=== PATIENT | male | born 1945 | race Caucasian/White ===

== ENCOUNTER 2017-07-25 16:52 | Emergency (ER) | payer OTHER, MEDICARE ==
[~2017-07-25] VITALS: Ht 190.5 cm; Wt 55.9 kg
[~2017-07-25 16:52] MED LIST: NICO-687 TD; NO HOME MEDS
[2017-07-25] MEDS ORDERED: ondansetron/PF 4mg/2ml inj IV ONE (17:15)
[2017-07-25] MEDS ORDERED: normal saline 1000ml 1,000 ML IV ONE (17:15)
[2017-07-25 17:36] LABS: BASOPHILS % (AUTO) 0.2 % (0-1); EOSINOPHILS # (AUTO) 0.1 X10'3 (0-0.9); EOSINOPHILS % (AUTO) 1.1 % (0-6); HEMATOCRIT 37.4 % (42.0-52.0); HEMOGLOBIN 12.4 g/dl (14.0-17.9); LYMPHOCYTES # (AUTO) 0.6 X10'3 (1.1-4.8); LYMPHOCYTES % (AUTO) 4.4 % (21-51); MEAN CORPUSCULAR HEMOGLOBIN 31.4 PG (27.0-31.0); MEAN CORPUSCULAR HGB CONC 33.2 % (33.0-36.5); MEAN CORPUSCULAR VOLUME 94.5 FL (78-98); MEAN PLATELET VOLUME 6.3 FL (7.4-10.4); MONOCYTES % (AUTO) 7.6 % (2-12); NEUTROPHILS # (AUTO) 11.3 X10'3 (1.8-7.7); NEUTROPHILS % (AUTO) 86.7 % (42-75); PLATELET COUNT 596 X10'3 (140-440); RED BLOOD COUNT 3.96 X10'6 (4.70-6.10); RED CELL DISTRIBUTION WIDTH 16.7 % (11.5-14.5)
[2017-07-25 17:50] LABS: ALANINE AMINOTRANSFERASE 13 U/L (12-78); ALBUMIN 3.4 G/DL (3.4-5.0); ALBUMIN/GLOBULIN RATIO 0.7 (1.1-1.5); ALKALINE PHOSPHATASE 107 IU/L (46-116); ANION GAP 15 (8-16); ASPARTATE AMINO TRANSFERASE 18 U/L (10-37); BILIRUBIN,TOTAL 0.8 MG/DL (0.1-1.0); BLOOD UREA NITROGEN 31 MG/DL (7-18); BUN/CREATININE RATIO 16.9 (5.4-32.0); CALCIUM 10.8 MG/DL (8.5-10.1); CHLORIDE 101 MMOL/L (99-107); CREATININE 1.83 MG/DL (0.60-1.10); GLUCOSE 144 MG/DL (70-104); POTASSIUM 4.3 MMOL/L (3.5-5.1); SODIUM 137 MMOL/L (135-145); TOTAL CARBON DIOXIDE 20.6 MMOL/L (24-32); TOTAL PROTEIN 8.1 G/DL (6.4-8.2); eGFR 37 ML/MIN
[2017-07-25] MEDS ORDERED: ONDA8TAB9 PO (20:05)
[2017-07-25] MEDS ORDERED: POLY119P2 PO (20:05)
[2017-07-25] MEDS ORDERED: HYDR-3965 PO (20:05)
[2017-07-25] MEDS ORDERED: HYDROcodone/acetaminophen 5mg/325mg tablet PO ONE (20:10)
[2017-07-25 21:56] VITALS: BP 124/63
== END 2017-07-25 21:58 | disposition home or self-care (01) ==
LOC: ER 16:52
DX: M54.9 Dorsalgia, unspecified (principal); C67.9 Malignant neoplasm of bladder, unspecified; N18.9 Chronic kidney disease, unspecified; R93.8 Abnormal findings on diagnostic imaging of other specified body structures
CPT/HCPCS: 36415; 71250; 74176; 80053; 85025; 96361; 96374; 96375; 99285; J2270; J2405; J7030

== ENCOUNTER 2017-08-03 15:59 | Inpatient (IN) | payer OTHER, MEDICARE ==
[~2017-08-03] VITALS: Ht 188 cm; Wt 65.0 kg
[~2017-08-03 15:59] MED LIST changes: +HYDR-3965 PO; +ONDA8TAB9 PO; +POLY119P2 PO
[2017-08-03] MEDS ORDERED: ondansetron 4mg rapidly disintigrating tab PO ONE (16:40)
[2017-08-03] MEDS ORDERED: HYDROcodone/acetaminophen 5mg/325mg tablet PO ONE ×2 (16:40→18:20)
[2017-08-03 16:42] LABS: BASOPHILS % (AUTO) 0.1 % (0-1); EOSINOPHILS # (AUTO) 0.1 X10'3 (0-0.9); EOSINOPHILS % (AUTO) 0.6 % (0-6); HEMATOCRIT 33.3 % (42.0-52.0); LYMPHOCYTES # (AUTO) 0.7 X10'3 (1.1-4.8); LYMPHOCYTES % (AUTO) 4.6 % (21-51); MEAN CORPUSCULAR HGB CONC 33.1 % (33.0-36.5); MEAN CORPUSCULAR VOLUME 93.6 FL (78-98); MEAN PLATELET VOLUME 6.5 FL (7.4-10.4); MONOCYTES # (AUTO) 0.7 X10'3 (0-0.9); MONOCYTES % (AUTO) 4.4 % (2-12); NEUTROPHILS # (AUTO) 13.5 X10'3 (1.8-7.7); NEUTROPHILS % (AUTO) 90.3 % (42-75); PLATELET COUNT 602 X10'3 (140-440); RED BLOOD COUNT 3.56 X10'6 (4.70-6.10); RED CELL DISTRIBUTION WIDTH 15.9 % (11.5-14.5); WHITE BLOOD COUNT 14.9 X10'3 (4.5-11.0)
[2017-08-03 17:00] LABS: ALANINE AMINOTRANSFERASE 10 U/L (12-78); ALBUMIN 2.4 G/DL (3.4-5.0); ALBUMIN/GLOBULIN RATIO 0.5 (1.1-1.5); ALKALINE PHOSPHATASE 105 IU/L (46-116); ANION GAP 9 (8-16); ASPARTATE AMINO TRANSFERASE 32 U/L (10-37); BILIRUBIN,TOTAL 0.4 MG/DL (0.1-1.0); BLOOD UREA NITROGEN 28 MG/DL (7-18); BUN/CREATININE RATIO 14.4 (5.4-32.0); CALCIUM 9.1 MG/DL (8.5-10.1); CHLORIDE 99 MMOL/L (99-107); CREATININE 1.94 MG/DL (0.60-1.10); GLUCOSE 130 MG/DL (70-104); POTASSIUM 3.8 MMOL/L (3.5-5.1); SODIUM 136 MMOL/L (135-145); TOTAL CARBON DIOXIDE 28.4 MMOL/L (24-32); TOTAL PROTEIN 6.9 G/DL (6.4-8.2); eGFR 34 ML/MIN
[2017-08-03] MEDS ORDERED: magnesium hydroxide 30ml (MOM) UD suspension PO PRN (17:35)
[2017-08-03] MEDS ORDERED: mag hydrox/Alum hydrox/simeth 30ml oral suspension PO PRN (17:35)
[2017-08-03] MEDS ORDERED: acetaminophen 325mg tablet PO PRN (17:35)
[2017-08-03] MEDS ORDERED: HYDROmorphone 1 mg/ml syringe IV PRN (17:35)
[2017-08-03] MEDS ORDERED: ondansetron/PF 4mg/2ml inj IV PRN (17:35)
[2017-08-03] MEDS: normal saline 1000ml 1,000 ML IV SCH (19:00)
[2017-08-03] MEDS: heparin, porcine 5000 units/ml vial SQ SCH (21:14)
[2017-08-03 21:37] LABS: CLARITY,URINE CLOUDY (Clear); COLOR,URINE YELLOW (Yellow); GLUCOSE, URINE NEGATIVE (Neg); KETONES,URINE NEGATIVE (Neg); LEUKOCYTE ESTERASE ,URINE SMALL (Neg); NITRITES, URINE NEGATIVE (Neg); OCCULT BLOOD,URINE LARGE (Neg); PROTEIN,URINE 100 mg/dl (Neg)
[2017-08-03 21:46] LABS: UA COLLECTION TYPE OTHER
[2017-08-03 21:47] LABS: BACTERIA,URINE FEW /HPF (Neg); RBC,URINE 20-50 /HPF (0-2); SQUAMOUS EPITHELIAL CELL,UR FEW /LPF (FEW); WBC CLUMPS,URINE FEW /HPF (NEGATIVE); WBC,URINE 30-50 /HPF (0-4)
[2017-08-03 22:30] VITALS: BP 119/48
[2017-08-04] MEDS: HYDROcodone/acetaminophen 5mg/325mg tablet PO PRN ×3 (01:09→12:35)
[2017-08-04] MEDS: normal saline 1000ml 1,000 ML IV SCH ×3 (04:45→23:31)
[2017-08-04 06:00] VITALS: BP 136/62
[2017-08-04 06:05] LABS: BASOPHILS # (AUTO) 0.1 X10'3 (0-0.2); BASOPHILS % (AUTO) 0.9 % (0-1); EOSINOPHILS # (AUTO) 0.3 X10'3 (0-0.9); EOSINOPHILS % (AUTO) 2.4 % (0-6); HEMATOCRIT 31.9 % (42.0-52.0); HEMOGLOBIN 10.4 g/dl (14.0-17.9); LYMPHOCYTES # (AUTO) 0.9 X10'3 (1.1-4.8); LYMPHOCYTES % (AUTO) 6.6 % (21-51); MEAN CORPUSCULAR HEMOGLOBIN 30.5 PG (27.0-31.0); MEAN CORPUSCULAR HGB CONC 32.7 % (33.0-36.5); MEAN CORPUSCULAR VOLUME 93.3 FL (78-98); MEAN PLATELET VOLUME 7.4 FL (7.4-10.4); MONOCYTES # (AUTO) 0.6 X10'3 (0-0.9); MONOCYTES % (AUTO) 4.9 % (2-12); NEUTROPHILS % (AUTO) 85.2 % (42-75); PLATELET COUNT 550 X10'3 (140-440); RED BLOOD COUNT 3.42 X10'6 (4.70-6.10); RED CELL DISTRIBUTION WIDTH 16.1 % (11.5-14.5)
[2017-08-04 06:28] LABS: ALBUMIN 2.5 G/DL (3.4-5.0); ANION GAP 10 (8-16); BLOOD UREA NITROGEN 28 MG/DL (7-18); BUN/CREATININE RATIO 15.7 (5.4-32.0); CALCIUM 9.2 MG/DL (8.5-10.1); CHLORIDE 103 MMOL/L (99-107); CREATININE 1.78 MG/DL (0.60-1.10); GLUCOSE 117 MG/DL (70-104); SODIUM 140 MMOL/L (135-145); TOTAL CARBON DIOXIDE 26.7 MMOL/L (24-32); eGFR 38 ML/MIN
[2017-08-04] MEDS: heparin, porcine 5000 units/ml vial SQ SCH ×2 (07:27→20:00)
[2017-08-04 10:30] VITALS: BP 124/56
[2017-08-04] MEDS: HYDROcodone/acetaminophen 10/325mg tab PO PRN ×2 (16:51→21:56)
[2017-08-04 18:12] VITALS: BP 120/59
[2017-08-04 22:10] VITALS: BP 131/63
[2017-08-05 05:00] VITALS: BP 133/70
[2017-08-05] MEDS: HYDROcodone/acetaminophen 10/325mg tab PO PRN ×5 (05:43→22:45)
[2017-08-05 06:37] LABS: BASOPHILS # (AUTO) 0.1 X10'3 (0-0.2); BASOPHILS % (AUTO) 0.7 % (0-1); EOSINOPHILS # (AUTO) 0.3 X10'3 (0-0.9); EOSINOPHILS % (AUTO) 2.5 % (0-6); HEMATOCRIT 30.5 % (42.0-52.0); LYMPHOCYTES # (AUTO) 0.6 X10'3 (1.1-4.8); LYMPHOCYTES % (AUTO) 5.3 % (21-51); MEAN CORPUSCULAR HEMOGLOBIN 30.7 PG (27.0-31.0); MEAN CORPUSCULAR HGB CONC 32.7 % (33.0-36.5); MEAN CORPUSCULAR VOLUME 93.7 FL (78-98); MEAN PLATELET VOLUME 7.3 FL (7.4-10.4); MONOCYTES # (AUTO) 0.5 X10'3 (0-0.9); MONOCYTES % (AUTO) 3.9 % (2-12); NEUTROPHILS # (AUTO) 10.6 X10'3 (1.8-7.7); NEUTROPHILS % (AUTO) 87.6 % (42-75); PLATELET COUNT 596 X10'3 (140-440); RED BLOOD COUNT 3.26 X10'6 (4.70-6.10); RED CELL DISTRIBUTION WIDTH 16.1 % (11.5-14.5); WHITE BLOOD COUNT 12.1 X10'3 (4.5-11.0)
[2017-08-05 07:08] LABS: ALBUMIN 2.4 G/DL (3.4-5.0); ANION GAP 8 (8-16); BLOOD UREA NITROGEN 25 MG/DL (7-18); CALCIUM 9.1 MG/DL (8.5-10.1); CHLORIDE 102 MMOL/L (99-107); CREATININE 1.67 MG/DL (0.60-1.10); GLUCOSE 111 MG/DL (70-104); POTASSIUM 3.6 MMOL/L (3.5-5.1); SODIUM 138 MMOL/L (135-145); TOTAL CARBON DIOXIDE 27.7 MMOL/L (24-32); eGFR 41 ML/MIN
[2017-08-05] MEDS: heparin, porcine 5000 units/ml vial SQ SCH ×2 (07:18→20:00)
[2017-08-05 10:30] VITALS: BP 109/44
[2017-08-05 18:12] VITALS: BP 110/66
[2017-08-05 22:03] VITALS: BP 128/69
[2017-08-06] MEDS: HYDROcodone/acetaminophen 5mg/325mg tablet PO PRN ×2 (02:49→07:20)
[2017-08-06] MEDS: heparin, porcine 5000 units/ml vial SQ SCH ×2 (07:17→20:22)
[2017-08-06 07:48] LABS: BASOPHILS % (AUTO) 0.5 % (0-1); EOSINOPHILS # (AUTO) 0.3 X10'3 (0-0.9); EOSINOPHILS % (AUTO) 3.4 % (0-6); HEMATOCRIT 27.3 % (42.0-52.0); HEMOGLOBIN 8.9 g/dl (14.0-17.9); LYMPHOCYTES # (AUTO) 0.7 X10'3 (1.1-4.8); LYMPHOCYTES % (AUTO) 7.2 % (21-51); MEAN CORPUSCULAR HEMOGLOBIN 30.5 PG (27.0-31.0); MEAN CORPUSCULAR HGB CONC 32.6 % (33.0-36.5); MEAN CORPUSCULAR VOLUME 93.8 FL (78-98); MONOCYTES # (AUTO) 0.6 X10'3 (0-0.9); MONOCYTES % (AUTO) 5.5 % (2-12); NEUTROPHILS # (AUTO) 8.4 X10'3 (1.8-7.7); NEUTROPHILS % (AUTO) 83.4 % (42-75); PLATELET COUNT 542 X10'3 (140-440); RED BLOOD COUNT 2.91 X10'6 (4.70-6.10); WHITE BLOOD COUNT 10.1 X10'3 (4.5-11.0)
[2017-08-06 08:03] LABS: ALBUMIN 2.2 G/DL (3.4-5.0); ANION GAP 6 (8-16); BLOOD UREA NITROGEN 26 MG/DL (7-18); BUN/CREATININE RATIO 15.6 (5.4-32.0); CHLORIDE 103 MMOL/L (99-107); CREATININE 1.67 MG/DL (0.60-1.10); GLUCOSE 110 MG/DL (70-104); POTASSIUM 4.2 MMOL/L (3.5-5.1); SODIUM 138 MMOL/L (135-145); TOTAL CARBON DIOXIDE 28.9 MMOL/L (24-32); eGFR 41 ML/MIN
[2017-08-06] MEDS: HYDROcodone/acetaminophen 10/325mg tab PO PRN ×2 (14:32→18:52)
[2017-08-06 18:03] VITALS: BP 123/50
[2017-08-07 05:00] VITALS: BP 125/64
[2017-08-07 06:15] LABS: BASOPHILS # (AUTO) 0.1 X10'3 (0-0.2); BASOPHILS % (AUTO) 0.6 % (0-1); EOSINOPHILS # (AUTO) 0.3 X10'3 (0-0.9); EOSINOPHILS % (AUTO) 2.8 % (0-6); HEMATOCRIT 26.7 % (42.0-52.0); HEMOGLOBIN 8.8 g/dl (14.0-17.9); LYMPHOCYTES # (AUTO) 0.6 X10'3 (1.1-4.8); LYMPHOCYTES % (AUTO) 6.5 % (21-51); MEAN CORPUSCULAR HEMOGLOBIN 30.4 PG (27.0-31.0); MEAN CORPUSCULAR HGB CONC 32.8 % (33.0-36.5); MEAN CORPUSCULAR VOLUME 92.8 FL (78-98); MEAN PLATELET VOLUME 6.7 FL (7.4-10.4); MONOCYTES # (AUTO) 0.5 X10'3 (0-0.9); MONOCYTES % (AUTO) 5.5 % (2-12); NEUTROPHILS # (AUTO) 8.4 X10'3 (1.8-7.7); NEUTROPHILS % (AUTO) 84.6 % (42-75); PLATELET COUNT 574 X10'3 (140-440); RED BLOOD COUNT 2.88 X10'6 (4.70-6.10); RED CELL DISTRIBUTION WIDTH 15.8 % (11.5-14.5); WHITE BLOOD COUNT 9.9 X10'3 (4.5-11.0)
[2017-08-07 06:38] LABS: ALBUMIN 2.2 G/DL (3.4-5.0); ANION GAP 5 (8-16); BLOOD UREA NITROGEN 22 MG/DL (7-18); BUN/CREATININE RATIO 14.7 (5.4-32.0); CALCIUM 8.6 MG/DL (8.5-10.1); CHLORIDE 101 MMOL/L (99-107); GLUCOSE 119 MG/DL (70-104); POTASSIUM 4.3 MMOL/L (3.5-5.1); SODIUM 135 MMOL/L (135-145); TOTAL CARBON DIOXIDE 28.6 MMOL/L (24-32); eGFR 46 ML/MIN
[2017-08-07] MEDS: heparin, porcine 5000 units/ml vial SQ SCH ×2 (08:12→20:39)
[2017-08-07] MEDS: HYDROcodone/acetaminophen 10/325mg tab PO PRN ×4 (08:12→20:50)
[2017-08-07 10:00] VITALS: BP 103/49
[2017-08-07 22:00] VITALS: BP 128/65
[2017-08-08] MEDS: HYDROcodone/acetaminophen 10/325mg tab PO PRN ×4 (04:45→19:07)
[2017-08-08 05:00] VITALS: BP 158/85
[2017-08-08] MEDS: heparin, porcine 5000 units/ml vial SQ SCH ×2 (08:00→20:38)
[2017-08-08 10:00] VITALS: BP 115/57
[2017-08-08] MEDS: cefTRIAXone 1g/NS 100ml IVPB 100 ML IV SCH (11:12)
[2017-08-08 22:00] VITALS: BP 104/61
[2017-08-09] MEDS: HYDROcodone/acetaminophen 10/325mg tab PO PRN ×5 (01:39→23:14)
[2017-08-09] MEDS: heparin, porcine 5000 units/ml vial SQ SCH ×2 (08:00→19:15)
[2017-08-09] MEDS: LACTOBACILLUS RHAMNOSUS GG 15 billion unit sprinkle caps PO SCH (08:37)
[2017-08-09] MEDS: cefTRIAXone 1g/NS 100ml IVPB 100 ML IV SCH (08:38)
[2017-08-09] MEDS: pantoprazole 40mg Tablet.DR PO SCH (08:38)
[2017-08-09 10:00] VITALS: BP 111/63
[2017-08-09 22:00] VITALS: BP 114/57
[2017-08-10] MEDS: HYDROcodone/acetaminophen 10/325mg tab PO PRN ×3 (04:23→21:14)
[2017-08-10] MEDS: pantoprazole 40mg Tablet.DR PO SCH (07:47)
[2017-08-10] MEDS: LACTOBACILLUS RHAMNOSUS GG 15 billion unit sprinkle caps PO SCH (07:47)
[2017-08-10] MEDS: cefTRIAXone 1g/NS 100ml IVPB 100 ML IV SCH (07:47)
[2017-08-10] MEDS: heparin, porcine 5000 units/ml vial SQ SCH ×2 (07:59→20:00)
[2017-08-10 10:52] VITALS: BP 121/66
[2017-08-11] MEDS: pantoprazole 40mg Tablet.DR PO SCH (06:46)
[2017-08-11] MEDS: LACTOBACILLUS RHAMNOSUS GG 15 billion unit sprinkle caps PO SCH (06:46)
[2017-08-11] MEDS: HYDROcodone/acetaminophen 10/325mg tab PO PRN ×4 (06:48→19:51)
[2017-08-11 07:12] VITALS: BP 145/70
[2017-08-11] MEDS: cefTRIAXone 1g/NS 100ml IVPB 100 ML IV SCH (08:05)
[2017-08-11] MEDS: heparin, porcine 5000 units/ml vial SQ SCH ×2 (08:06→19:52)
[2017-08-11 11:12] VITALS: BP 138/70
[2017-08-11 22:00] VITALS: BP 132/72
[2017-08-12] MEDS: HYDROcodone/acetaminophen 10/325mg tab PO PRN ×2 (01:51→05:50)
[2017-08-12] MEDS: LACTOBACILLUS RHAMNOSUS GG 15 billion unit sprinkle caps PO SCH (07:21)
[2017-08-12] MEDS: cefTRIAXone 1g/NS 100ml IVPB 100 ML IV SCH (07:21)
[2017-08-12] MEDS: pantoprazole 40mg Tablet.DR PO SCH (07:21)
[2017-08-12] MEDS: heparin, porcine 5000 units/ml vial SQ SCH ×2 (07:22→19:41)
[2017-08-12 10:00] VITALS: BP 137/71
[2017-08-12] MEDS: HYDROcodone/acetaminophen 5mg/325mg tablet PO PRN (19:41)
[2017-08-12 22:00] VITALS: BP 128/72
[2017-08-13] MEDS: LACTOBACILLUS RHAMNOSUS GG 15 billion unit sprinkle caps PO SCH (07:43)
[2017-08-13] MEDS: cefTRIAXone 1g/NS 100ml IVPB 100 ML IV SCH (07:43)
[2017-08-13] MEDS: pantoprazole 40mg Tablet.DR PO SCH (07:43)
[2017-08-13] MEDS: heparin, porcine 5000 units/ml vial SQ SCH ×2 (07:44→20:00)
[2017-08-13 11:00] VITALS: BP 123/70
[2017-08-13] MEDS: HYDROcodone/acetaminophen 10/325mg tab PO PRN ×2 (12:38→21:36)
[2017-08-13 18:00] VITALS: BP 139/75
[2017-08-14 04:21] LABS: CLARITY,URINE CLOUDY (Clear); COLOR,URINE YELLOW (Yellow); GLUCOSE, URINE NEGATIVE (Neg); KETONES,URINE NEGATIVE (Neg); LEUKOCYTE ESTERASE ,URINE LARGE (Neg); NITRITES, URINE NEGATIVE (Neg); OCCULT BLOOD,URINE MODERATE (Neg); PH,URINE 6.5 (4.8-8.0); PROTEIN,URINE 30 mg/dl (Neg); UROBILINOGEN,URINE 0.2 E.U/dL (0.2-1.0)
[2017-08-14 04:29] LABS: UA COLLECTION TYPE NON-SPECIFIED
[2017-08-14 04:42] LABS: WBC,URINE 50-100 /HPF (0-4)
[2017-08-14 04:43] LABS: BACTERIA,URINE 1+ /HPF (Neg); MUCUS STRANDS FEW /LPF (Neg); SQUAMOUS EPITHELIAL CELL,UR FEW /LPF (FEW); TRANSITIONAL EPI CELLS,URINE FEW /HPF
[2017-08-14 06:00] VITALS: BP 122/72
[2017-08-14] MEDS: HYDROcodone/acetaminophen 10/325mg tab PO PRN ×3 (09:21→17:26)
[2017-08-14] MEDS: pantoprazole 40mg Tablet.DR PO SCH (09:21)
[2017-08-14] MEDS: LACTOBACILLUS RHAMNOSUS GG 15 billion unit sprinkle caps PO SCH (09:21)
[2017-08-14] MEDS: cefTRIAXone 1g/NS 100ml IVPB 100 ML IV SCH (09:24)
[2017-08-14] MEDS: heparin, porcine 5000 units/ml vial SQ SCH ×2 (09:25→21:23)
[2017-08-14 10:00] VITALS: BP 115/53
[2017-08-14] MEDS: HYDROcodone/acetaminophen 5mg/325mg tablet PO PRN (21:24)
[2017-08-14 22:00] VITALS: BP 96/47
[2017-08-15] MEDS: HYDROcodone/acetaminophen 10/325mg tab PO PRN ×3 (01:35→17:45)
[2017-08-15] MEDS: cefTRIAXone 1g/NS 100ml IVPB 100 ML IV SCH (07:31)
[2017-08-15] MEDS: LACTOBACILLUS RHAMNOSUS GG 15 billion unit sprinkle caps PO SCH (07:31)
[2017-08-15] MEDS: pantoprazole 40mg Tablet.DR PO SCH (07:31)
[2017-08-15] MEDS: heparin, porcine 5000 units/ml vial SQ SCH ×2 (07:32→20:42)
[2017-08-15 10:00] VITALS: BP 100/47
[2017-08-15 22:00] VITALS: BP 124/74
[2017-08-16] MEDS: HYDROcodone/acetaminophen 5mg/325mg tablet PO PRN (04:03)
[2017-08-16 05:02] VITALS: BP 139/79
[2017-08-16] MEDS: HYDROcodone/acetaminophen 10/325mg tab PO PRN ×2 (08:20→14:46)
[2017-08-16] MEDS: LACTOBACILLUS RHAMNOSUS GG 15 billion unit sprinkle caps PO SCH (08:20)
[2017-08-16] MEDS: pantoprazole 40mg Tablet.DR PO SCH (08:20)
[2017-08-16] MEDS: heparin, porcine 5000 units/ml vial SQ SCH ×2 (08:21→20:49)
[2017-08-16 10:00] VITALS: BP 118/63
[2017-08-16 22:00] VITALS: BP 127/65
[2017-08-17] MEDS: pantoprazole 40mg Tablet.DR PO SCH (07:20)
[2017-08-17] MEDS: LACTOBACILLUS RHAMNOSUS GG 15 billion unit sprinkle caps PO SCH (07:20)
[2017-08-17] MEDS: heparin, porcine 5000 units/ml vial SQ SCH ×2 (07:20→19:54)
[2017-08-17 12:24] VITALS: BP 124/65
[2017-08-17 18:30] VITALS: BP 134/84
[2017-08-18 06:53] VITALS: BP 120/66
[2017-08-18] MEDS: heparin, porcine 5000 units/ml vial SQ SCH ×2 (08:28→19:44)
[2017-08-18] MEDS: pantoprazole 40mg Tablet.DR PO SCH (08:33)
[2017-08-18] MEDS: LACTOBACILLUS RHAMNOSUS GG 15 billion unit sprinkle caps PO SCH (08:33)
[2017-08-18 10:00] VITALS: BP 133/69
[2017-08-19] MEDS: LACTOBACILLUS RHAMNOSUS GG 15 billion unit sprinkle caps PO SCH (07:30)
[2017-08-19] MEDS: heparin, porcine 5000 units/ml vial SQ SCH (07:40)
[2017-08-19] MEDS: pantoprazole 40mg Tablet.DR PO SCH (07:40)
== END 2017-08-19 11:15 | disposition hospice, home (50) | DRG 683 ==
LOC: ER 15:59 → ED HOLD 17:36 → ORTHO 4S 22:00
PROVIDERS: ADMIT Family Medicine; ATTEND Internal Medicine
DX: N17.9 Acute kidney failure, unspecified (principal); R64 Cachexia; C79.51 Secondary malignant neoplasm of bone; C78.00 Secondary malignant neoplasm of unspecified lung; E44.0 Moderate protein-calorie malnutrition; Z68.1 Body mass index [BMI] 19.9 or less, adult; N39.0 Urinary tract infection, site not specified; G89.3 Neoplasm related pain (acute) (chronic); N18.9 Chronic kidney disease, unspecified; L90.5 Scar conditions and fibrosis of skin; F41.9 Anxiety disorder, unspecified; F17.200 Nicotine dependence, unspecified, uncomplicated; Z51.5 Encounter for palliative care; Z66 Do not resuscitate; Z85.46 Personal history of malignant neoplasm of prostate; Z85.51 Personal history of malignant neoplasm of bladder
CPT/HCPCS: 36415; 80048; 80053; 81001; 83735; 85025; 87070; 87077; 87088; 87186; 93005; 99285; A4357; A4421; A6212; A6213; A6258; A6449; J0696; J1644; J2270; J2405; J7030